=== PATIENT | female | born 1970 | race African-American/Black ===

== ENCOUNTER 2017-07-06 12:23 | Emergency (ER) | payer MEDICARE ==
[~2017-07-06] VITALS: Ht 167.6 cm; Wt 70.0 kg
[~2017-07-06 12:23] MED LIST: ASPI-867 PO; ATOR40TA70 PO; CLOP75TA33 PO; CYCL30DR BOTHEYE; ERGOCALCIFEROL PO; INSNOV SUBCUT; LEVPEN SQ; LOPERAMIDE HCL PO; SEVE0.8P PO; VALS160T23 PO; [UNRECOGNIZED DRUG - OTHER] PO
[2017-07-06] MEDS ORDERED: CLONIDINE 0.2MG TABLET PO ONE (15:15)
[2017-07-06] MEDS ORDERED: HYDRALAZINE 20MG/ML VIAL IV ONE (16:30)
[2017-07-06 17:32] VITALS: BP 196/86
== END 2017-07-06 18:05 | disposition home or self-care (01) ==
LOC: ER 12:57
DX: I12.0 Hypertensive chronic kidney disease with stage 5 chronic kidney disease or end stage renal disease (principal); N18.6 End stage renal disease; E11.22 Type 2 diabetes mellitus with diabetic chronic kidney disease; E78.5 Hyperlipidemia, unspecified; Z79.4 Long term (current) use of insulin; Z79.82 Long term (current) use of aspirin; Z99.2 Dependence on renal dialysis; Z88.0 Allergy status to penicillin
CPT/HCPCS: 93005; 96374; 99284; J0360

== ENCOUNTER 2017-07-14 15:13 | Emergency (ER) | payer MEDICARE, MEDICAID ==
[~2017-07-14] VITALS: Ht 170.2 cm; Wt 80.0 kg
[2017-07-14 15:27] VITALS: BP 170/80
== END 2017-07-14 17:58 | disposition left against medical advice (07) ==
LOC: ER 15:28
DX: R79.89 Other specified abnormal findings of blood chemistry (principal); Z53.21 Procedure and treatment not carried out due to patient leaving prior to being seen by health care provider

== ENCOUNTER 2018-01-04 11:15 | Emergency (ER) | payer MEDICARE, OTHER ==
[~2018-01-04] VITALS: Ht 172.7 cm; Wt 72.0 kg
[~2018-01-04 11:15] MED LIST changes: +CARV12.545 PO; +HYDR100T26 PO; +LOSA100T14 PO; +METO-396 PO; +OLME20TA22 PO; -VALS160T23 PO; +VALS160T27 PO
[2018-01-04 12:14] LABS: BASOPHILS % 1.4 % (0.0-2.0); EOSINOPHILS % 2.8 % (0.0-5.0); HEMATOCRIT. 26.3 % (36.0-48.0); HEMOGLOBIN. 8.4 g/dL (12.0-16.0); LYMPHOCYTES % 16.4 % (20.0-50.0); MEAN CORPUSCULAR HEMOGLOBIN 24.8 pg (28.0-32.0); MEAN CORPUSCULAR VOLUME 77.8 fL (81.0-99.0); MEAN PLATELET VOLUME 7.3 fl (7.4-10.4); MONOCYTES % 4.8 % (2.0-8.0); NEUTROPHILS % 74.6 % (40.0-76.0); PLATELET 284 x1000/uL (130-400); RED BLOOD CELL COUNT 3.37 mill/uL (4.2-5.4); RED CELL DISTRIBUTION WIDTH 24.6 % (11.6-14.6)
[2018-01-04 12:19] LABS: CHLORIDE 102 mEq/L (98-107)
[2018-01-04 12:21] LABS: INR 1.1; PROTHROMBIN TIME 11.3 sec (9.4-11.6)
[2018-01-04 12:57] LABS: PLATELET ESTIMATE NORMAL
[2018-01-04 19:45] VITALS: BP 133/76
== END 2018-01-04 21:07 | disposition home or self-care (01) ==
LOC: ER 11:15
DX: R55 Syncope and collapse (principal); I11.0 Hypertensive heart disease with heart failure; I50.9 Heart failure, unspecified; E88.09 Other disorders of plasma-protein metabolism, not elsewhere classified; D50.9 Iron deficiency anemia, unspecified; E11.65 Type 2 diabetes mellitus with hyperglycemia; E11.22 Type 2 diabetes mellitus with diabetic chronic kidney disease; E87.5 Hyperkalemia; N18.6 End stage renal disease; Z88.0 Allergy status to penicillin; Z88.1 Allergy status to other antibiotic agents
CPT/HCPCS: 36415; 71045; 80053; 83880; 84484; 85025; 85610; 93005; 99285

== ENCOUNTER 2018-01-05 10:26 | Inpatient (IN) | payer MEDICARE, OTHER ==
[~2018-01-05] VITALS: Ht 188 cm; Wt 72.7 kg
[2018-01-05 02:00] VITALS: BP_SYST 22
[2018-01-05 11:32] LABS: EOSINOPHILS % 1.2 % (0.0-5.0); HEMATOCRIT. 27.1 % (36.0-48.0); HEMOGLOBIN. 8.6 g/dL (12.0-16.0); LYMPHOCYTES % 15.7 % (20.0-50.0); MEAN PLATELET VOLUME 7.9 fl (7.4-10.4); MONOCYTES % 5.5 % (2.0-8.0); NEUTROPHILS % 76.6 % (40.0-76.0); PLATELET 277 x1000/uL (130-400); RED BLOOD CELL COUNT 3.43 mill/uL (4.2-5.4); RED CELL DISTRIBUTION WIDTH 24.7 % (11.6-14.6)
[2018-01-05] MEDS ORDERED: SODIUM POLYSTYRENE SULFONATE 15 G/60 ML BOT PO ONE (12:45)
[2018-01-05 14:00] VITALS: BP 142/82
[2018-01-05] MEDS ORDERED: NON FORMULARY PATIENT HOME MED EA XX SCH ×2 (15:45)
[2018-01-05] MEDS ORDERED: HEPARIN SODIUM 1,000 UNIT/1ML VIAL IV NR (16:30)
[2018-01-05] MEDS ORDERED: LEVOFLOXACIN 250MG PREMIX 50 ML IV SCH (16:30)
[2018-01-05] MEDS: CARVEDILOL 12.5MG TABLET PO SCH (17:00)
[2018-01-05] MEDS ORDERED: VANCOMYCIN 1500MG in DEXTROSE 5% WATER 250ML IV NR (17:00)
[2018-01-05] MEDS: CALCIUM ACETATE 667MG CAPSULE PO SCH ×2 (17:40→18:32)
[2018-01-05 19:49] VITALS: BP 140/38
[2018-01-05] MEDS: ATORVASTATIN CALCIUM 40MG TABLET PO SCH (21:13)
[2018-01-05] MEDS: FOLIC ACID/VITAMIN B COMP W-C TABLET PO SCH (21:13)
[2018-01-05] MEDS: HYDRALAZINE HCL 25MG TABLET PO SCH (21:13)
[2018-01-05] MEDS: EPOETIN ALFA 10000UNITS/ML VIAL SUBCUT SCH (21:14)
[2018-01-06] VITALS: BP 159/66
[2018-01-06 04:00] VITALS: BP 153/53
[2018-01-06] MEDS: HYDRALAZINE HCL 25MG TABLET PO SCH ×3 (06:30→21:43)
[2018-01-06] MEDS: CALCIUM ACETATE 667MG CAPSULE PO SCH ×3 (07:40→17:03)
[2018-01-06 08:11] VITALS: BP_SYST 116; BP_SYST 163; BP_DIAS 60; BP_DIAS 69
[2018-01-06] MEDS: CARVEDILOL 12.5MG TABLET PO SCH ×2 (09:00→17:00)
[2018-01-06] MEDS: FOLIC ACID/VITAMIN B COMP W-C TABLET PO SCH (09:00)
[2018-01-06] MEDS: LOSARTAN POTASSIUM 100 MG TABLET PO SCH (09:00)
[2018-01-06 12:27] LABS: BASOPHILS % 1.1 % (0.0-2.0); EOSINOPHILS % 2.4 % (0.0-5.0); HEMATOCRIT. 23.8 % (36.0-48.0); HEMOGLOBIN. 7.6 g/dL (12.0-16.0); LYMPHOCYTES % 12.4 % (20.0-50.0); MEAN CORPUSCULAR HEMOGLOBIN 25.1 pg (28.0-32.0); MEAN CORPUSCULAR VOLUME 78.9 fL (81.0-99.0); MEAN PLATELET VOLUME 7.4 fl (7.4-10.4); MONOCYTES % 7.5 % (2.0-8.0); NEUTROPHILS % 76.6 % (40.0-76.0); PLATELET 238 x1000/uL (130-400); RED BLOOD CELL COUNT 3.02 mill/uL (4.2-5.4); RED CELL DISTRIBUTION WIDTH 24.6 % (11.6-14.6)
[2018-01-06 12:30] LABS: INR 1.1; PARTIAL THROMBOPLASTIN TIME 26.7 sec (23.4-31.0)
[2018-01-06 12:33] VITALS: BP 145/87
[2018-01-06 12:55] LABS: CHLORIDE 104 mEq/L (98-107)
[2018-01-06 13:01] LABS: PHOSPHORUS 4.1 mg/dL (2.5-4.9)
[2018-01-06 13:02] LABS: LDL CHOLESTEROL 49 mg/dL (5-100)
[2018-01-06 13:03] LABS: HDL CHOLESTEROL 37 mg/dL (40-59); TOTAL IRON BINDING CAPACITY 194 ug/dL (250-450)
[2018-01-06] MEDS ORDERED: BACITRACIN ZINC 15GM TUBE TOP ONE (14:55)
[2018-01-06] MEDS ORDERED: THROMBIN (BOVINE) 5000 UNITS/VIAL TOP ONE (14:55)
[2018-01-06] MEDS ORDERED: LIDOCAINE HCL/PF 1% 10 MG/ML 5ML VIAL ONE (14:56)
[2018-01-06] MEDS ORDERED: HEPARIN SODIUM 1,000 UNIT/1ML VIAL IV ONE ×2 (14:56→17:43)
[2018-01-06] MEDS ORDERED: NORMAL SALINE 0.9% 10 ML SYR ONE (14:56)
[2018-01-06] MEDS ORDERED: BUPIVACAINE HCL/PF 0.5% (5MG/ML) 10ML ONE (14:56)
[2018-01-06] MEDS ORDERED: BACITRACIN 50,000 UNITS/VIAL ONE ×2 (14:57→18:30)
[2018-01-06] MEDS ORDERED: GELATIN SPONGE,ABSORBABLE SZ 100 ONE (14:57)
[2018-01-06] MEDS ORDERED: PROPOFOL 200MG/20ML VIAL IV ONE (16:00)
[2018-01-06] MEDS ORDERED: MEPERIDINE HCL/PF 25MG/ML CPJ IV PRN (17:00)
[2018-01-06] MEDS ORDERED: ONDANSETRON HCL 4MG/2ML VIAL IV PRN (17:00)
[2018-01-06] MEDS ORDERED: LABETALOL 5MG/ML SYR 20 MG/4 ML SYRINGE IV PRN (17:00)
[2018-01-06] MEDS ORDERED: HYDROMORPHONE HCL/PF 2MG/ML CPJ IV PRN (17:00)
[2018-01-06 21:20] VITALS: BP 124/72
[2018-01-06] MEDS: ATORVASTATIN CALCIUM 40MG TABLET PO SCH (21:43)
[2018-01-07] VITALS (9 sets, daily range): BP systolic 106–152; BP diastolic 47–79
[2018-01-07] MEDS: HYDRALAZINE HCL 25MG TABLET PO SCH ×3 (05:31→21:13)
[2018-01-07] MEDS: CALCIUM ACETATE 667MG CAPSULE PO SCH ×3 (08:32→17:39)
[2018-01-07] MEDS: FOLIC ACID/VITAMIN B COMP W-C TABLET PO SCH (08:33)
[2018-01-07] MEDS: CARVEDILOL 12.5MG TABLET PO SCH ×2 (09:00→17:00)
[2018-01-07] MEDS: LOSARTAN POTASSIUM 100 MG TABLET PO SCH (09:00)
[2018-01-07 09:31] LABS: BASOPHILS % 0.8 % (0.0-2.0); EOSINOPHILS % 2.1 % (0.0-5.0); HEMOGLOBIN. 7.6 g/dL (12.0-16.0); LYMPHOCYTES % 11.8 % (20.0-50.0); MEAN CORPUSCULAR HEMOGLOBIN 25.9 pg (28.0-32.0); MEAN CORPUSCULAR VOLUME 78.3 fL (81.0-99.0); MEAN PLATELET VOLUME 7.8 fl (7.4-10.4); MONOCYTES % 8.5 % (2.0-8.0); NEUTROPHILS % 76.8 % (40.0-76.0); PLATELET 215 x1000/uL (130-400); RED BLOOD CELL COUNT 2.94 mill/uL (4.2-5.4); RED CELL DISTRIBUTION WIDTH 21.6 % (11.6-14.6)
[2018-01-07] MEDS ORDERED: LEVOFLOXACIN 250MG TABLET PO SCH (17:00)
[2018-01-07] MEDS: ATORVASTATIN CALCIUM 40MG TABLET PO SCH (20:18)
[2018-01-07] MEDS: EPOETIN ALFA 10000UNITS/ML VIAL SUBCUT SCH (20:19)
[2018-01-07] MEDS ORDERED: VANCOMYCIN 1 G PREMIX 200 ML IV NR (21:00)
[2018-01-08] VITALS: BP 130/58
[2018-01-08 04:00] VITALS: BP 130/58
[2018-01-08] MEDS: HYDRALAZINE HCL 25MG TABLET PO SCH ×2 (05:27→13:48)
[2018-01-08 07:59] LABS: BASOPHILS % 1.2 % (0.0-2.0); EOSINOPHILS % 4.1 % (0.0-5.0); HEMATOCRIT. 26.1 % (36.0-48.0); HEMOGLOBIN. 8.5 g/dL (12.0-16.0); LYMPHOCYTES % 15.6 % (20.0-50.0); MEAN CORPUSCULAR HEMOGLOBIN 25.9 pg (28.0-32.0); MEAN CORPUSCULAR VOLUME 79.4 fL (81.0-99.0); MEAN PLATELET VOLUME 7.7 fl (7.4-10.4); MONOCYTES % 9.6 % (2.0-8.0); NEUTROPHILS % 69.5 % (40.0-76.0); PLATELET 203 x1000/uL (130-400); RED BLOOD CELL COUNT 3.29 mill/uL (4.2-5.4); RED CELL DISTRIBUTION WIDTH 20.8 % (11.6-14.6)
[2018-01-08 08:00] VITALS: BP 133/70
[2018-01-08 08:31] LABS: PHOSPHORUS 3.4 mg/dL (2.5-4.9)
[2018-01-08] MEDS: LOSARTAN POTASSIUM 100 MG TABLET PO SCH (08:57)
[2018-01-08] MEDS: CARVEDILOL 12.5MG TABLET PO SCH (08:57)
[2018-01-08] MEDS: FOLIC ACID/VITAMIN B COMP W-C TABLET PO SCH (08:57)
[2018-01-08] MEDS: CALCIUM ACETATE 667MG CAPSULE PO SCH ×2 (08:57→12:40)
[2018-01-08 12:39] VITALS: BP 133/70
== END 2018-01-08 13:58 | disposition home health service (06) | DRG 252 ==
LOC: ER 10:26 → 8WST 12:41 → ENRESERV 12:52
PROVIDERS: ADMIT Internal Medicine; ATTEND Internal Medicine
PROC: 30233N1 Transfusion of Nonautologous Red Blood Cells into Peripheral Vein, Percutaneous Approach (ICD-10-PCS; 2018-01-05)
PROC: 5A1D70Z Performance of Urinary Filtration, Intermittent, Less than 6 Hours Per Day (ICD-10-PCS; 2018-01-05)
PROC: 031 Upper Arteries, Bypass (ICD-10-PCS; 2018-01-06)
PROC: 5A1D70Z Performance of Urinary Filtration, Intermittent, Less than 6 Hours Per Day (ICD-10-PCS; 2018-01-06)
PROC: 03B70ZZ Excision of Right Brachial Artery, Open Approach (ICD-10-PCS; principal; 2018-01-06 15:30)
DX: T82.838A Hemorrhage due to vascular prosthetic devices, implants and grafts, initial encounter (principal); N18.6 End stage renal disease; A41.02 Sepsis due to Methicillin resistant Staphylococcus aureus; I13.2 Hypertensive heart and chronic kidney disease with heart failure and with stage 5 chronic kidney disease, or end stage renal disease; E46 Unspecified protein-calorie malnutrition; Z99.2 Dependence on renal dialysis; I87.2 Venous insufficiency (chronic) (peripheral); D64.9 Anemia, unspecified; F79 Unspecified intellectual disabilities; M14.671 Charcot's joint, right ankle and foot; E78.5 Hyperlipidemia, unspecified; E87.5 Hyperkalemia; E11.22 Type 2 diabetes mellitus with diabetic chronic kidney disease; M48.02 Spinal stenosis, cervical region; E11.41 Type 2 diabetes mellitus with diabetic mononeuropathy; E11.51 Type 2 diabetes mellitus with diabetic peripheral angiopathy without gangrene; Y84.1 Kidney dialysis as the cause of abnormal reaction of the patient, or of later complication, without mention of misadventure at the time of the procedure; F81.9 Developmental disorder of scholastic skills, unspecified; M14.672 Charcot's joint, left ankle and foot; M21.969 Unspecified acquired deformity of unspecified lower leg; Z98.1 Arthrodesis status; Z88.0 Allergy status to penicillin; Z88.6 Allergy status to analgesic agent; Z88.1 Allergy status to other antibiotic agents; Z79.82 Long term (current) use of aspirin; Z79.899 Other long term (current) drug therapy; Y92.89 Other specified places as the place of occurrence of the external cause; Z68.20 Body mass index [BMI] 20.0-20.9, adult
CPT/HCPCS: 36415; 80048; 80061; 80076; 80202; 82728; 82962; 83540; 83550; 83735; 84100; 84443; 85025; 85610; 85730; 86850; 86900; 86920; 87040; 87077; 88304; 88305; 93005; 99285; A4216; J0885; J1644; J1956; J2704; J3370; J3490; J7030; J7040; J7050; J7060; P9016

== ENCOUNTER 2018-02-26 20:13 | Inpatient (IN) | payer MEDICARE, OTHER ==
[~2018-02-26] VITALS: Ht 188 cm; Wt 78.9 kg
[~2018-02-26 20:13] MED LIST changes: -ERGOCALCIFEROL PO; -INSNOV SUBCUT; -LEVPEN SQ; -LOPERAMIDE HCL PO; -SEVE0.8P PO; -VALS160T27 PO; -[UNRECOGNIZED DRUG - OTHER] PO
[2018-02-26 22:26] LABS: BASOPHILS % 1.2 % (0.0-2.0); EOSINOPHILS % 6.2 % (0.0-5.0); HEMATOCRIT. 39.2 % (36.0-48.0); HEMOGLOBIN. 12.6 g/dL (12.0-16.0); LYMPHOCYTES % 22.5 % (20.0-50.0); MEAN CORPUSCULAR HEMOGLOBIN 26.4 pg (28.0-32.0); MEAN CORPUSCULAR VOLUME 81.7 fL (81.0-99.0); MEAN PLATELET VOLUME 8.6 fl (7.4-10.4); MONOCYTES % 7.5 % (2.0-8.0); NEUTROPHILS % 62.6 % (40.0-76.0); PLATELET 153 x1000/uL (130-400); RED CELL DISTRIBUTION WIDTH 23.8 % (11.6-14.6)
[2018-02-26 22:27] LABS: CHLORIDE 103 mEq/L (98-107)
[2018-02-26 22:28] LABS: INR 1.1
[2018-02-26 22:50] LABS: PLATELET ESTIMATE NORMAL
[2018-02-26] MEDS ORDERED: FUROSEMIDE 100MG/10ML VIAL IV STA (23:32)
[2018-02-26] MEDS ORDERED: SODIUM BICARBONATE 8.4% 1 MEQ/ML 50ML SYR IV ONE (23:45)
[2018-02-26] MEDS ORDERED: DEXTROSE 50% WATER 50ML SYRINGE IV ONE (23:45)
[2018-02-26] MEDS ORDERED: ALBUTEROL (0.083%) 2.5MG/3ML NEB HHN ONE (23:45)
[2018-02-26] MEDS ORDERED: CALCIUM CHLORIDE 1GM/10ML SYR IV ONE (23:45)
[2018-02-26] MEDS ORDERED: INSULIN REGULAR (HUMULIN R) 300UNITS/3ML IV ONE (23:45)
[2018-02-26] MEDS ORDERED: SODIUM POLYSTYRENE SULFONATE 15 G/60 ML BOT PO ONE (23:45)
[2018-02-27] VITALS (7 sets, daily range): BP systolic 106–174; BP diastolic 40–72
[2018-02-27] MEDS ORDERED: INSULIN REGULAR (HUMULIN R) 300UNITS/3ML IV NR (00:15)
[2018-02-27] MEDS ORDERED: ALBUTEROL (0.083%) 2.5MG/3ML NEB ONE ×2 (01:00→01:07)
[2018-02-27] MEDS ORDERED: FUROSEMIDE 100MG/10ML VIAL IV NR (01:45)
[2018-02-27] MEDS ORDERED: MEDICATION NOT ON FORMULARY EA (Hydralazine Hcl 100 MG) PO SCH (03:15)
[2018-02-27] MEDS: HYDRALAZINE HCL 100MG TABLET PO SCH ×3 (05:03→20:49)
[2018-02-27 06:42] LABS: BASOPHILS % 1.5 % (0.0-2.0); HEMATOCRIT. 36.8 % (36.0-48.0); HEMOGLOBIN. 11.8 g/dL (12.0-16.0); LYMPHOCYTES % 21.8 % (20.0-50.0); MEAN CORPUSCULAR HEMOGLOBIN 26.4 pg (28.0-32.0); MEAN CORPUSCULAR VOLUME 82.3 fL (81.0-99.0); MEAN PLATELET VOLUME 8.8 fl (7.4-10.4); MONOCYTES % 7.5 % (2.0-8.0); NEUTROPHILS % 62.2 % (40.0-76.0); PLATELET 149 x1000/uL (130-400); RED BLOOD CELL COUNT 4.47 mill/uL (4.2-5.4); RED CELL DISTRIBUTION WIDTH 23.9 % (11.6-14.6)
[2018-02-27] MEDS ORDERED: MEDICATION NOT ON FORMULARY EA (Losartan Potassium 100 MG) PO SCH (09:00)
[2018-02-27] MEDS ORDERED: MEDICATION NOT ON FORMULARY EA (Cyclosporine (Restasis) 1 DROP) BOTHEYE SCH (09:00)
[2018-02-27] MEDS: CARVEDILOL 12.5MG TABLET PO SCH ×2 (09:00→20:48)
[2018-02-27] MEDS ORDERED: OLMESARTAN MEDOXOMIL 20 MG PO SCH (09:00)
[2018-02-27] MEDS ORDERED: MEDICATION NOT ON FORMULARY EA (Metoprolol Succinate 25 MG) PO SCH (09:00)
[2018-02-27] MEDS: LOSARTAN POTASSIUM 100 MG TABLET PO SCH (09:00)
[2018-02-27] MEDS ORDERED: METOPROLOL TARTRATE 25MG TABLET PO SCH (09:00)
[2018-02-27] MEDS: FOLIC ACID/VITAMIN B COMP W-C TABLET PO SCH (13:57)
[2018-02-27] MEDS: CALCIUM ACETATE 667MG CAPSULE PO SCH ×2 (13:57→17:43)
[2018-02-27] MEDS: AMLODIPINE 5MG TABLET PO SCH (20:48)
[2018-02-27] MEDS: ATORVASTATIN CALCIUM 40MG TABLET PO SCH (20:49)
[2018-02-27] MEDS ORDERED: VANCOMYCIN 1 G PREMIX 200 ML IV SCH (21:00)
[2018-02-28 04:00] VITALS: BP 96/53
[2018-02-28] MEDS: HYDRALAZINE HCL 100MG TABLET PO SCH ×3 (05:41→20:38)
[2018-02-28 08:00] VITALS: BP 131/108
[2018-02-28] MEDS: CALCIUM ACETATE 667MG CAPSULE PO SCH ×3 (09:28→18:45)
[2018-02-28] MEDS: FOLIC ACID/VITAMIN B COMP W-C TABLET PO SCH (09:28)
[2018-02-28] MEDS: AMLODIPINE 5MG TABLET PO SCH ×2 (09:31→20:38)
[2018-02-28] MEDS: LOSARTAN POTASSIUM 100 MG TABLET PO SCH (09:31)
[2018-02-28] MEDS: CARVEDILOL 12.5MG TABLET PO SCH ×2 (09:32→20:38)
[2018-02-28 12:00] VITALS: BP 144/46
[2018-02-28 16:00] VITALS: BP 141/63
[2018-02-28 20:00] VITALS: BP 138/87
[2018-02-28] MEDS: ATORVASTATIN CALCIUM 40MG TABLET PO SCH (20:37)
[2018-03-01] VITALS (7 sets, daily range): BP systolic 119–150; BP diastolic 42–56
[2018-03-01 05:32] LABS: BASOPHILS % 0.2 % (0.0-2.0); EOSINOPHILS % 9.4 % (0.0-5.0); HEMATOCRIT. 37.1 % (36.0-48.0); HEMOGLOBIN. 12.1 g/dL (12.0-16.0); MEAN CORPUSCULAR HEMOGLOBIN 26.6 pg (28.0-32.0); MEAN CORPUSCULAR VOLUME 81.5 fL (81.0-99.0); MEAN PLATELET VOLUME 8.8 fl (7.4-10.4); MONOCYTES % 8.6 % (2.0-8.0); NEUTROPHILS % 53.8 % (40.0-76.0); PLATELET 144 x1000/uL (130-400); RED BLOOD CELL COUNT 4.55 mill/uL (4.2-5.4); RED CELL DISTRIBUTION WIDTH 23.6 % (11.6-14.6)
[2018-03-01] MEDS: HYDRALAZINE HCL 100MG TABLET PO SCH ×2 (05:33→14:39)
[2018-03-01] MEDS: CALCIUM ACETATE 667MG CAPSULE PO SCH ×3 (09:14→18:08)
[2018-03-01] MEDS: AMLODIPINE 5MG TABLET PO SCH (09:14)
[2018-03-01] MEDS: FOLIC ACID/VITAMIN B COMP W-C TABLET PO SCH (09:14)
[2018-03-01] MEDS: LOSARTAN POTASSIUM 100 MG TABLET PO SCH (09:14)
[2018-03-01] MEDS: CARVEDILOL 12.5MG TABLET PO SCH (09:15)
== END 2018-03-01 18:43 | disposition home or self-care (01) | DRG 314 ==
LOC: ER 21:22 → 7WST 23:53 → ENRESERV 02-27 01:02
PROVIDERS: ADMIT Internal Medicine; ATTEND Internal Medicine
PROC: 05HM33Z Insertion of Infusion Device into Right Internal Jugular Vein, Percutaneous Approach (ICD-10-PCS; principal; 2018-02-26)
PROC: 5A1D70Z Performance of Urinary Filtration, Intermittent, Less than 6 Hours Per Day (ICD-10-PCS; 2018-02-27)
DX: T82.838A Hemorrhage due to vascular prosthetic devices, implants and grafts, initial encounter (principal); N18.6 End stage renal disease; A41.1 Sepsis due to other specified staphylococcus; I13.2 Hypertensive heart and chronic kidney disease with heart failure and with stage 5 chronic kidney disease, or end stage renal disease; I50.30 Unspecified diastolic (congestive) heart failure; D64.9 Anemia, unspecified; E87.5 Hyperkalemia; E11.22 Type 2 diabetes mellitus with diabetic chronic kidney disease; Y84.1 Kidney dialysis as the cause of abnormal reaction of the patient, or of later complication, without mention of misadventure at the time of the procedure; E11.51 Type 2 diabetes mellitus with diabetic peripheral angiopathy without gangrene; F79 Unspecified intellectual disabilities; Z79.899 Other long term (current) drug therapy; Z79.82 Long term (current) use of aspirin; Z88.6 Allergy status to analgesic agent; Z99.2 Dependence on renal dialysis; Z98.1 Arthrodesis status; Z88.0 Allergy status to penicillin; Z88.1 Allergy status to other antibiotic agents; Y92.89 Other specified places as the place of occurrence of the external cause; Z86.14 Personal history of Methicillin resistant Staphylococcus aureus infection; Z79.4 Long term (current) use of insulin
CPT/HCPCS: 36415; 71045; 80048; 80053; 80202; 82962; 84550; 85025; 85610; 86850; 86900; 87040; 93005; 93970; 94640; 96374; 96375; 99291; A6261; J1815; J1940; J3370; J3490; J7030; J7050; J7611

== ENCOUNTER 2018-09-01 15:01 | Inpatient (IN) | payer MEDICARE, OTHER ==
[~2018-09-01] VITALS: Ht 165.1 cm; Wt 80.3 kg
[~2018-09-01 15:01] MED LIST changes: -ASPI-867 PO
[2018-09-01 16:56] LABS: BASOPHILS % 1.1 % (0.0-2.0); EOSINOPHILS % 3.3 % (0.0-5.0); HEMATOCRIT. 34.2 % (36.0-48.0); HEMOGLOBIN. 10.9 g/dL (12.0-16.0); LYMPHOCYTES % 11.9 % (20.0-50.0); MEAN CORPUSCULAR HEMOGLOBIN 24.4 pg (28.0-32.0); MEAN CORPUSCULAR VOLUME 76.6 fL (81.0-99.0); MEAN PLATELET VOLUME 8.2 fl (7.4-10.4); MONOCYTES % 4.3 % (2.0-8.0); NEUTROPHILS % 79.4 % (40.0-76.0); PLATELET 163 x1000/uL (130-400); RED BLOOD CELL COUNT 4.46 mill/uL (4.2-5.4); RED CELL DISTRIBUTION WIDTH 25.2 % (11.6-14.6)
[2018-09-01 16:58] LABS: CHLORIDE 104 mEq/L (98-107)
[2018-09-01 17:04] LABS: PHOSPHORUS 5.7 mg/dL (2.5-4.9)
[2018-09-01 17:05] LABS: PARTIAL THROMBOPLASTIN TIME 27.9 sec (23.4-31.0); PROTHROMBIN TIME 10.4 sec (9.1-11.1)
[2018-09-01 17:12] LABS: PLATELET ESTIMATE NORMAL
[2018-09-01 22:30] VITALS: BP 159/62
[2018-09-02 00:02] VITALS: BP 173/45
[2018-09-02 04:00] VITALS: BP 201/68
[2018-09-02 08:00] VITALS: BP 167/47
[2018-09-02] MEDS: CARVEDILOL 12.5MG TABLET PO SCH ×2 (09:30→22:03)
[2018-09-02] MEDS ORDERED: DEXTROSE 50% WATER 50ML SYRINGE IV PRN (09:30)
[2018-09-02] MEDS: CLOPIDOGREL 75MG TABLET PO SCH (09:30)
[2018-09-02 12:00] VITALS: BP 121/98
[2018-09-02] MEDS: BLOOD SUGAR DIAGNOSTIC STRIP TEST SCH ×3 (12:24→21:34)
[2018-09-02] MEDS: INSULIN LISPRO 100 UNITS/ML SUBCUT SCH ×3 (12:25→21:00)
[2018-09-02 12:48] LABS: HEMATOCRIT 30.1 % (36.0-48.0); HEMOGLOBIN 9.5 g/dL (12.0-16.0); MEAN CORPUSCULAR HEMOGLOBIN 23.9 pg (28.0-32.0); MEAN CORPUSCULAR VOLUME 75.7 fL (81.0-99.0); PLATELET 195 x1000/uL (130-400); RED BLOOD CELL COUNT 3.98 mill/uL (4.2-5.4); RED CELL DISTRIBUTION WIDTH 25.3 % (11.6-14.6)
[2018-09-02] MEDS: HYDRALAZINE HCL 100MG TABLET PO SCH ×2 (14:50→22:03)
[2018-09-02 16:00] VITALS: BP 149/58
[2018-09-02] MEDS ORDERED: CALCIUM ACETATE 667MG CAPSULE PO SCH (17:50)
[2018-09-02] MEDS: CALCIUM ACETATE 667MG CAPSULE PO SCH (18:19)
[2018-09-02 20:00] VITALS: BP 136/61
[2018-09-02] MEDS ORDERED: EPOETIN ALFA 10000UNITS/ML VIAL SUBCUT SCH (21:00)
[2018-09-02] MEDS ORDERED: ATORVASTATIN CALCIUM 40MG TABLET PO SCH (21:00)
[2018-09-03] VITALS: BP 154/59
[2018-09-03 04:00] VITALS: BP 135/40
[2018-09-03] MEDS: HYDRALAZINE HCL 100MG TABLET PO SCH ×2 (06:44→14:34)
[2018-09-03] MEDS: BLOOD SUGAR DIAGNOSTIC STRIP TEST SCH ×2 (06:44→12:20)
[2018-09-03] MEDS: CALCIUM ACETATE 667MG CAPSULE PO SCH ×3 (07:50→12:50)
[2018-09-03] MEDS: INSULIN LISPRO 100 UNITS/ML SUBCUT SCH ×2 (07:50→12:50)
[2018-09-03 08:00] VITALS: BP 141/51
[2018-09-03 08:08] LABS: EOSINOPHILS % 3.8 % (0.0-5.0); HEMATOCRIT. 29.6 % (36.0-48.0); HEMOGLOBIN. 9.4 g/dL (12.0-16.0); LYMPHOCYTES % 15.8 % (20.0-50.0); MEAN CORPUSCULAR HEMOGLOBIN 24.1 pg (28.0-32.0); MEAN CORPUSCULAR VOLUME 75.9 fL (81.0-99.0); MEAN PLATELET VOLUME 8.2 fl (7.4-10.4); MONOCYTES % 9.3 % (2.0-8.0); NEUTROPHILS % 70.1 % (40.0-76.0); PLATELET 178 x1000/uL (130-400)
[2018-09-03 08:26] LABS: PHOSPHORUS 5.1 mg/dL (2.5-4.9)
[2018-09-03] MEDS: CARVEDILOL 12.5MG TABLET PO SCH (08:48)
[2018-09-03] MEDS: CLOPIDOGREL 75MG TABLET PO SCH (08:48)
[2018-09-03] MEDS ORDERED: FOLIC ACID/VITAMIN B COMP W-C TABLET PO SCH (09:00)
[2018-09-03 12:15] VITALS: BP 141/51
[2018-09-03] MEDS ORDERED: LOSARTAN POTASSIUM 100 MG TABLET PO NR (16:15)
[2018-09-03] MEDS ORDERED: HYDRALAZINE HCL 100MG TABLET PO NR (16:15)
[2018-09-03 16:32] VITALS: BP 192/65
[2018-09-03 17:21] VITALS: BP 156/50
== END 2018-09-03 18:30 | disposition home or self-care (01) | DRG 638 ==
LOC: ER 15:01 → 6WST 15:54 → EDBEDREQ 16:15 → EDBEDREQTM 16:15 → ENRESERV 20:10 → CANRESERV 20:10 → ENRESERV 20:13
PROVIDERS: ADMIT Internal Medicine; ATTEND Internal Medicine
PROC: 5A1D70Z Performance of Urinary Filtration, Intermittent, Less than 6 Hours Per Day (ICD-10-PCS; principal; 2018-09-03)
DX: E11.69 Type 2 diabetes mellitus with other specified complication (principal); I13.2 Hypertensive heart and chronic kidney disease with heart failure and with stage 5 chronic kidney disease, or end stage renal disease; E46 Unspecified protein-calorie malnutrition; M86.672 Other chronic osteomyelitis, left ankle and foot; D62 Acute posthemorrhagic anemia; I50.32 Chronic diastolic (congestive) heart failure; L97.429 Non-pressure chronic ulcer of left heel and midfoot with unspecified severity; I12.0 Hypertensive chronic kidney disease with stage 5 chronic kidney disease or end stage renal disease; R55 Syncope and collapse; N18.6 End stage renal disease; L97.529 Non-pressure chronic ulcer of other part of left foot with unspecified severity; D64.9 Anemia, unspecified; E11.51 Type 2 diabetes mellitus with diabetic peripheral angiopathy without gangrene; E11.610 Type 2 diabetes mellitus with diabetic neuropathic arthropathy; F79 Unspecified intellectual disabilities; E11.621 Type 2 diabetes mellitus with foot ulcer; M48.02 Spinal stenosis, cervical region; D63.8 Anemia in other chronic diseases classified elsewhere; E11.22 Type 2 diabetes mellitus with diabetic chronic kidney disease; E11.42 Type 2 diabetes mellitus with diabetic polyneuropathy; M21.969 Unspecified acquired deformity of unspecified lower leg; Z98.1 Arthrodesis status; Z99.2 Dependence on renal dialysis; Z99.3 Dependence on wheelchair; Z88.0 Allergy status to penicillin; Z88.1 Allergy status to other antibiotic agents; Z68.29 Body mass index [BMI] 29.0-29.9, adult; Z79.84 Long term (current) use of oral hypoglycemic drugs; R58 Hemorrhage, not elsewhere classified
CPT/HCPCS: 36415; 71045; 73630; 80048; 82962; 83735; 84100; 84484; 85027; 86850; 86900; 93005; 93970; 99285; A6261; J0885

== ENCOUNTER 2018-11-12 13:44 | Emergency (ER) | payer MEDICARE, OTHER ==
[~2018-11-12] VITALS: Ht 185.4 cm; Wt 54.0 kg
[~2018-11-12 13:44] MED LIST changes: -CLOP75TA33 PO; -LOSA100T14 PO; -METO-396 PO
[2018-11-12 14:56] LABS: BASOPHILS % 1.2 % (0.0-2.0); EOSINOPHILS % 5.2 % (0.0-5.0); HEMATOCRIT. 27.1 % (36.0-48.0); HEMOGLOBIN. 8.4 g/dL (12.0-16.0); LYMPHOCYTES % 10.9 % (20.0-50.0); MEAN CORPUSCULAR HEMOGLOBIN 22.7 pg (28.0-32.0); MEAN CORPUSCULAR VOLUME 73.3 fL (81.0-99.0); MONOCYTES % 4.4 % (2.0-8.0); NEUTROPHILS % 78.3 % (40.0-76.0); PLATELET 283 x1000/uL (130-400); RED BLOOD CELL COUNT 3.69 mill/uL (4.2-5.4); RED CELL DISTRIBUTION WIDTH 26.5 % (11.6-14.6)
[2018-11-12 15:03] LABS: CHLORIDE 101 mEq/L (98-107)
[2018-11-12 15:50] VITALS: BP 178/76
[2018-11-12 15:58] LABS: PLATELET ESTIMATE NORMAL
== END 2018-11-12 15:53 | disposition home or self-care (01) ==
LOC: ER 13:44 → CANBEDREQ 15:33 → ER 15:53
DX: D64.9 Anemia, unspecified (principal); I12.0 Hypertensive chronic kidney disease with stage 5 chronic kidney disease or end stage renal disease; N18.6 End stage renal disease; E11.22 Type 2 diabetes mellitus with diabetic chronic kidney disease; Z99.2 Dependence on renal dialysis
CPT/HCPCS: 36415; 71045; 86850; 86900; 93005; 99284